=== PATIENT | male | born 1985 | race African-American/Black ===

== ENCOUNTER 2018-08-12 21:00 | Emergency (ER) | payer SELFPAY ==
[~2018-08-12] VITALS: Ht 182.9 cm; Wt 93.0 kg
[2018-08-12] MEDS ORDERED: KETOROLAC 30MG/ML VIAL IM ONE (22:15)
[2018-08-12] MEDS ORDERED: CYCLOBENZAPRINE 10MG TABLET PO ONE (22:15)
[2018-08-12 22:42] VITALS: BP 160/94
== END 2018-08-12 23:36 | disposition home or self-care (01) ==
LOC: ER 21:00
DX: S39.012A Strain of muscle, fascia and tendon of lower back, initial encounter (principal); X50.1XXA Overexertion from prolonged static or awkward postures, initial encounter; Y93.89 Activity, other specified; Y92.89 Other specified places as the place of occurrence of the external cause; Y99.8 Other external cause status
CPT/HCPCS: 96372; 99283; J1885

== ENCOUNTER 2020-03-11 05:05 | Emergency (ER) | payer SELFPAY ==
[~2020-03-11] VITALS: Ht 182.9 cm; Wt 90.9 kg
[2020-03-11] MEDS ORDERED: KETOROLAC 60MG/2ML VIAL IM ONE (06:30)
[2020-03-11 06:36] VITALS: BP 188/122
== END 2020-03-11 06:38 | disposition home or self-care (01) ==
LOC: ER 05:05
DX: M54.5 Low back pain (principal); I10 Essential (primary) hypertension
CPT/HCPCS: 96372; 99283; J1885